=== PATIENT | female | born 1985 | race Caucasian/White ===

== ENCOUNTER 2020-01-22 06:49 | Day surgery (SDC) | payer OTHER, MEDICAID ==
[~2020-01-22] VITALS: Ht 147.3 cm; Wt 32.0 kg
[~2020-01-22 06:49] MED LIST: ASPI-728 PO; RINGERS SOLUTION,LACTATED 1,000 ML IV ONE; TADA20TA31 PO
[2020-01-22] MEDS ORDERED: LIDOCAINE/PF 2% 5 ML VIAL IM ONE (06:50)
[2020-01-22] MEDS ORDERED: SUCCINYLCHOLINE CHLORIDE 20 MG/ML 10 ML VIAL IVP ONE (06:50)
[2020-01-22] MEDS ORDERED: DEXAMETHASONE SOD PHOS 4 MG/ML VIAL IVP ONE (06:50)
[2020-01-22] MEDS ORDERED: ONDANSETRON HCL 4 MG/2 ML VIAL IVP ONE (06:50)
[2020-01-22] MEDS ORDERED: PROPOFOL 1% 20 ML VIAL IVP ONE (06:50)
[2020-01-22] MEDS ORDERED: RINGERS SOLUTION,LACTATED 1,000 ML IV ONE (07:00)
[2020-01-22 07:32] LABS: BASOPHILS % (AUTO) 1.4 % (0.0-2.0); EOSINOPHILS % (AUTO) 3.3 % (1.0-6.0); HEMATOCRIT 38.1 % (36-46); HEMOGLOBIN 12.1 g/dL (12.0-16.0); LYMPHOCYTES # (AUTO) 1.8 K/uL (1.0-4.8); LYMPHOCYTES % (AUTO) 36.5 % (22.0-44.0); MEAN CORPUSCULAR HEMOGLOBIN 24.3 pg (26.0-34.0); MEAN CORPUSCULAR HGB CONC 31.9 G/dL (31.0-37.0); MEAN CORPUSCULAR VOLUME 76 fL (80-100); MONOCYTES # (AUTO) 0.5 K/uL (0.1-1.0); MONOCYTES % (AUTO) 9.7 % (2.0-9.0); NEUTROPHILS # (AUTO) 2.4 K/uL (1.8-7.7); NEUTROPHILS % (AUTO) 49.1 % (40.0-70.0); PLATELET COUNT (AUTO) 193 K/uL (150-450); RED CELL DISTRIBUTION WIDTH 17.2 % (11.5-14.5)
[2020-01-22 07:46] LABS: PROTHROMBIN TIME 10.7 SEC (9.4-11.6)
[2020-01-22 07:48] LABS: ANION GAP 14 mmol/L (8-16); CALCIUM, TOTAL 9.3 mg/dL (8.8-10.5); CARBON DIOXIDE 21 mmol/L (22-29); CHLORIDE 106 mmol/L (98-107); CREATININE 0.72 mg/dL (0.60-1.30); GLOMERULAR FILTR. RATE CALC > 60 mL/min (>60); GLUCOSE,RANDOM 96 mg/dL (70-110); POTASSIUM 3.9 mmol/L (3.5-5.1); SODIUM SERUM 141 mmol/L (136-145); UREA NITROGEN, BLOOD 12 mg/dL (7-18)
[2020-01-22 07:52] LABS: ALANINE AMINOTRANSFERASE 14 U/L (12-78); ALBUMIN 4.2 g/dL (3.4-5.0); ALKALINE PHOSPHATASE 74 U/L (46-116); ASPARTATE AMINOTRANSFERASE 20 U/L (15-37); BILIRUBIN,TOTAL 0.3 mg/dL (0.1-1.0); TOTAL PROTEIN, SERUM 8.7 g/dL (6.4-8.2)
[2020-01-22] MEDS ORDERED: MEPERIDINE-PF 25 MG/ML VIAL IVP PRN (11:15)
[2020-01-22] MEDS ORDERED: FentaNYL CITRATE-PF 100 MCG/2 ML VIAL IVP PRN (11:15)
[2020-01-22] MEDS ORDERED: HYDROmorphone 2 MG/ML SYRINGE IVP PRN (11:15)
[2020-01-22] MEDS ORDERED: MEPERIDINE-PF 25 MG/ML VIAL ONE (11:58)
[2020-01-22] MEDS ORDERED: OXYGEN THERAPY IH SCH (20:00)
== END 2020-01-22 13:10 | disposition home or self-care (01) ==
LOC: EDSEX 06:49 → SURGERY 06:49
PROVIDERS: ATTEND Dentist General Practice
DX: K05.30 Chronic periodontitis, unspecified (principal); I10 Essential (primary) hypertension; I27.20 Pulmonary hypertension, unspecified; F41.9 Anxiety disorder, unspecified; Z98.890 Other specified postprocedural states; Z79.82 Long term (current) use of aspirin; Z11.59 Encounter for screening for other viral diseases
CPT/HCPCS: 36415; 41899; 71045; 80053; 84703; 85025; 85610; 85730; 87635; 93005; J0330; J1100; J2175; J2405; J2704; J3490; J7120

== ENCOUNTER 2025-01-01 06:21 | Day surgery (SDC) | payer OTHER, MEDICARE, MEDICAID ==
[~2025-01-01] VITALS: Ht 147.3 cm; Wt 34.5 kg
[~2025-01-01 06:21] MED LIST changes: +ASPI-1450 PO; -ASPI-728 PO; +DEXAMETHASONE SOD PHOS 4 MG/ML VIAL ONE; +GLYCOPYRROLATE 0.2 MG/ML VIAL ONE; +METOCLOPRAMIDE HCL 5 MG/ML 2 ML VIAL ONE; +ONDANSETRON HCL 4 MG/2 ML VIAL ONE; +PHENYLEPHRINE HCL 10 MG/ML VIAL ONE; +PROPOFOL 1% 20 ML VIAL IVP ONE; +ROCURONIUM BROMIDE 10 MG/ML 5 ML VIAL ONE; +SUGAMMADEX SODIUM 200 MG/2 ML VIAL IVP ONE
[2025-01-01] MEDS ORDERED: AMPICILLIN SODIUM 2 GM/NS 100 ML IV ONE (07:33)
[2025-01-01 07:56] LABS: BASOPHILS % (AUTO) 1.1 % (0.0-2.0); HEMOGLOBIN 13.6 g/dL (12.0-16.0); LYMPHOCYTES # (AUTO) 1.2 K/uL (1.0-4.8); LYMPHOCYTES % (AUTO) 27.4 % (22.0-44.0); MEAN CORPUSCULAR HEMOGLOBIN 27.4 pg (26.0-34.0); MEAN CORPUSCULAR HGB CONC 32.4 G/dL (31.0-37.0); MEAN CORPUSCULAR VOLUME 85 fL (80-100); MONOCYTES # (AUTO) 0.4 K/uL (0.1-1.0); MONOCYTES % (AUTO) 8.6 % (2.0-9.0); NEUTROPHILS # (AUTO) 2.5 K/uL (1.8-7.7); NEUTROPHILS % (AUTO) 59.9 % (40.0-70.0); PLATELET COUNT (AUTO) 128 K/uL (150-450); RED BLOOD CELL COUNT(AUTO) 4.97 MIL/uL (4.00-5.20); RED CELL DISTRIBUTION WIDTH 17.7 % (11.5-14.5); WHITE BLOOD COUNT (AUTO) 4.3 K/uL (4.5-11.0)
[2025-01-01] MEDS: RINGERS SOLUTION,LACTATED 1,000 ML IV ONE (08:02)
[2025-01-01 08:06] LABS: ANION GAP 6 mmol/L (8-16); CALCIUM, TOTAL 9.2 mg/dL (8.8-10.5); CARBON DIOXIDE 27 mmol/L (22-29); CHLORIDE 105 mmol/L (98-107); CREATININE 0.75 mg/dL (0.60-1.30); GLOMERULAR FILTR. RATE CALC > 60 mL/min (>60); GLUCOSE,RANDOM 83 mg/dL (70-110); POTASSIUM 3.5 mmol/L (3.5-5.1); SODIUM SERUM 138 mmol/L (136-145); UREA NITROGEN, BLOOD 12 mg/dL (7-18)
[2025-01-01 08:10] LABS: ALBUMIN 3.8 g/dL (3.4-5.0); ALKALINE PHOSPHATASE 100 U/L (46-116); ASPARTATE AMINOTRANSFERASE 23 U/L (15-37); BILIRUBIN,TOTAL 0.4 mg/dL (0.1-1.0); TOTAL PROTEIN, SERUM 7.9 g/dL (6.4-8.2)
[2025-01-01 08:16] LABS: PROTHROMBIN TIME 10.5 SEC (9.4-11.6)
[2025-01-01 08:18] LABS: ALANINE AMINOTRANSFERASE 17 U/L (12-78)
[2025-01-01] MEDS ORDERED: OXYGEN THERAPY IH SCH (20:00)
== END 2025-01-01 11:45 | disposition home or self-care (01) ==
LOC: SURGERY 06:21
PROVIDERS: ATTEND Dentist General Practice
DX: K02.9 Dental caries, unspecified (principal); K05.30 Chronic periodontitis, unspecified; K59.00 Constipation, unspecified; I10 Essential (primary) hypertension; F41.9 Anxiety disorder, unspecified; Z79.01 Long term (current) use of anticoagulants; Z79.899 Other long term (current) drug therapy; Z88.8 Allergy status to other drugs, medicaments and biological substances
CPT/HCPCS: 41899; 71045; 80053; 84703; 85025; 85610; 85730; 36415; 93005; J0290; J2704; J1100; J3490 ×3; J2765; J2405; J7120